=== PATIENT | female | born 1945 | race Caucasian/White ===

== ENCOUNTER 2017-09-17 07:24 | Inpatient (IN) | payer OTHER ==
[~2017-09-17] VITALS: Ht 162.6 cm; Wt 69.3 kg
[~2017-09-17 07:24] MED LIST: AZITHROMYCIN500 M1 PO; CALCIUM ANTACI500 MG PO; CYANOCOBALAM1000 MCG PO; ENABLEX15 MG PO; GLIPIZIDE5 MG PO; GLUCOTROL XL5 MG PO; LISINOPRIL10 MG PO; MEDROL DOSEPAK4 MG PO; METFORMIN HCL500 MG PO; OMEPRAZOLE20 MG PO; POTASSIUM CHLO10 ME4 PO; PRILOSEC20 MG PO; PULMICORT FLEX90 MCG IH; SIMVASTATIN20 MG PO; SIMVASTATIN40 MG PO; SPIRIVA RESPIMAT4 G1 IH; SULFASALAZINE500 MG PO; TOVIAZ8 MG PO; VENTOLIN HFA18 GM IH; VITAMIN D32000 UNI1 PO; VITAMIN E400 UNIT PO
[2017-09-17 08:04] LABS: BICARBONATE 27.9 mEq/L (22-26); CARBOXY HGB 2.1 % (0-5); COMMENTS - BLOOD GASES NAC+; DEVICE NC; METHEMOGLOBIN 1.1 % (0-1.5); O2 FLOW 6 L/MIN; PCO2 43 mm Hg (35-45); PO2 54 mm Hg (80-100); SITE LR; TOTAL RESP RATE 17 resp/min; pH 7.42 (7.35-7.45)
[2017-09-17 09:10] LABS: BASOPHIL COUNT 0.1 K/uL (0-0.1); EOSINOPHIL (%) 3.2 % (0-5); EOSINOPHIL COUNT 0.5 K/uL (0-0.3); HEMATOCRIT 35.6 % (36.0-46.0); IMMATURE GRANULOCYTE (%) 0.6 % (0.0-0.7); IMMATURE GRANULOCYTE COUNT 0.1 K/uL; INSTRUMENT ABS NEUTROPHIL CT 13.5 K/uL; LYMPHOCYTE COUNT 1.1 K/uL (1.0-2.8); MCH 27.3 PG (29.0-34.0); MCV 85.2 FL (83-99); MEAN PLAT.VOLUME 12.5 uM^3 (9.5-12.4); MONOCYTE (%) 5.9 % (3-12); NEUTROPHIL (%) 82.7 % (45-76); NEUTROPHIL COUNT 13.5 K/uL (1.8-6.4); PLATELET COUNT 227 K/uL (156-360); RBC DIS.WIDTH-CV 17.3 % (11.8-14.6); RBC DIS.WIDTH-SD 53.4 % (39-53); RED BLOOD COUNT 4.18 M/uL (3.80-5.20); WHITE BLOOD COUNT 16.4 K/uL (4.1-10.2)
[2017-09-17 09:15] LABS: INTER. NORMALIZED RATIO 1.1; PROTHROMBIN TIME 12.1 SEC (10.2-12.9)
[2017-09-17 09:17] LABS: PTT 22.7 SEC (25-37)
[2017-09-17 10:14] LABS: CHLORIDE 102 mEq/L (99-109); SODIUM 140 mEq/L (136-147)
[2017-09-17 10:17] LABS: GLUCOSE 161 mg/dL (70-99)
[2017-09-17 10:18] LABS: ANION GAP 11 MEQ/L (2-14); TOTAL BILIRUBIN 0.7 mg/dL (0.0-1.0)
[2017-09-17 10:20] LABS: ALKALINE PHOSPHATASE 123 IU/L (3-129); GFR ESTIMATE (CALCULATED) 58 mL/min/
[2017-09-17 10:21] LABS: UREA NITROGEN (BUN) 14 mg/dL (9-23)
[2017-09-17 10:24] LABS: TROP-I INTERPRETATION NEGATIVE; TROPONIN-I 0.08 ng/mL (0.0-0.30)
[2017-09-17 10:39] LABS: POTASSIUM 2.8 mEq/L (3.7-5.4)
[2017-09-17] MEDS ORDERED: ALBUTEROL2.5 MG/3 M IH (11:35)
[2017-09-17 13:29] LABS: ADD MIUA? YES; BILIRUBIN NEGATIVE; BLOOD MODERATE; COLOR YELLOW ((YELLOW)); GLUCOSE (STRIP) 50; KETONES NEGATIVE; LEUKOCYTES SMALL; NITRITE NEGATIVE; PROTEIN (STRIP) 30; SPECIFIC GRAVITY 1.008 (1.000-1.030); UROBILINOGEN 0.2 MG/DL (0.2-1.0)
[2017-09-17 13:36] LABS: BACTERIA 1+ /HPF; CALCIUM OXALATE CRYSTALS 1+ /HPF; EPITHELIAL CELLS RARE /HPF; HYALINE CASTS 0-5 /LPF; MUCUS TRACE /LPF; RED BLOOD CELLS 20-30 /HPF (0-5); UCUL ADDED? YES
[2017-09-17 14:52] VITALS: BP 180/82
[2017-09-17 16:12] LABS: TROP-I INTERPRETATION NEGATIVE; TROPONIN-I 0.09 ng/mL (0.0-0.30)
[2017-09-17 16:54] LABS: POINT-OF-CARE METER ID UU14314088
[2017-09-17 20:10] VITALS: BP 142/66
[2017-09-17 20:23] LABS: ANION GAP 11 MEQ/L (2-14); CHLORIDE 103 MEQ/L (99-109); GFR ESTIMATE (CALCULATED) > 59 mL/min/; GLUCOSE 265 mg/dL (70-99); SAMPLE HEMOLYSIS CHECK 0; SAMPLE ICTERIC CHECK 0; SAMPLE LIPEMIA CHECK 0; SODIUM 139 MEQ/L (136-147); UREA NITROGEN (BUN) 16 mg/dL (9-23)
[2017-09-17 20:24] LABS: POTASSIUM 3.7 MEQ/L (3.7-5.4)
[2017-09-17 21:14] LABS: POINT-OF-CARE METER ID UU14314088
[2017-09-17 22:13] LABS: TROP-I INTERPRETATION NEGATIVE; TROPONIN-I 0.05 ng/mL (0.0-0.30)
[2017-09-17 23:45] VITALS: BP 132/61
[2017-09-18 03:54] VITALS: BP 136/65
[2017-09-18 05:22] LABS: HEMATOCRIT 30.2 % (36.0-46.0); MCHC 31.8 G/DL (30.0-36.0); MCV 84.8 FL (83-99); MEAN PLAT.VOLUME 12.1 uM^3 (9.5-12.4); PLATELET COUNT 210 K/uL (156-360); RBC DIS.WIDTH-CV 17.2 % (11.8-14.6); RBC DIS.WIDTH-SD 53.1 % (39-53); RED BLOOD COUNT 3.56 M/uL (3.80-5.20); WHITE BLOOD COUNT 6.2 K/uL (4.1-10.2)
[2017-09-18 05:56] LABS: ANION GAP 13 MEQ/L (2-14); CHLORIDE 103 MEQ/L (99-109); GFR ESTIMATE (CALCULATED) 58 mL/min/; GLUCOSE 163 mg/dL (70-99); POTASSIUM 3.5 MEQ/L (3.7-5.4); SAMPLE HEMOLYSIS CHECK 0; SAMPLE ICTERIC CHECK 0; SAMPLE LIPEMIA CHECK 0; SODIUM 140 MEQ/L (136-147); UREA NITROGEN (BUN) 18 mg/dL (9-23)
[2017-09-18 07:49] LABS: POINT-OF-CARE METER ID UU13113781
[2017-09-18 07:50] VITALS: BP 126/59
[2017-09-18 08:52] LABS: INTERNAL CONTROL VALID? YES
[2017-09-18 11:45] LABS: POINT-OF-CARE METER ID UU13113781
[2017-09-18 12:15] VITALS: BP 163/72
[2017-09-18 16:46] LABS: POINT-OF-CARE METER ID UU13113781
[2017-09-18 17:01] VITALS: BP 147/66
[2017-09-18 19:05] VITALS: BP 160/71
[2017-09-18 21:34] LABS: POINT-OF-CARE METER ID UU13113781
[2017-09-18 23:37] VITALS: BP 150/70
[2017-09-19 03:20] VITALS: BP 154/72
[2017-09-19 08:00] VITALS: BP 190/92
[2017-09-19 08:15] LABS: POINT-OF-CARE METER ID UU14174216; POINT-OF-CARE USER ID NUTSLF44
[2017-09-19 11:34] VITALS: BP 184/87
[2017-09-19 11:43] LABS: POINT-OF-CARE METER ID UU14174216; POINT-OF-CARE USER ID NUTSLF44
[2017-09-19 15:25] VITALS: BP 194/90
[2017-09-19 17:18] LABS: POINT-OF-CARE METER ID UU14174216; POINT-OF-CARE USER ID NUTSLF44
[2017-09-19 19:50] VITALS: BP 166/72
[2017-09-19 21:30] LABS: POINT-OF-CARE METER ID UU13113698
[2017-09-19 23:15] VITALS: BP 149/66
[2017-09-20] VITALS (7 sets, daily range): BP systolic 158–210; BP diastolic 72–100
[2017-09-20 05:33] LABS: EOSINOPHIL (%) 0 % (0-5); HEMATOCRIT 31.8 % (36.0-46.0); IMMATURE GRANULOCYTE (%) 0.8 % (0.0-0.7); IMMATURE GRANULOCYTE COUNT 0.1 K/uL; INSTRUMENT ABS NEUTROPHIL CT 8.6 K/uL; LYMPHOCYTE COUNT 1.4 K/uL (1.0-2.8); MCH 27.7 PG (29.0-34.0); MCHC 32.7 G/DL (30.0-36.0); MCV 84.8 FL (83-99); MEAN PLAT.VOLUME 11.6 uM^3 (9.5-12.4); MONOCYTE (%) 4.6 % (3-12); MONOCYTE COUNT 0.5 K/uL (0-0.8); NEUTROPHIL COUNT 8.6 K/uL (1.8-6.4); PLATELET COUNT 247 K/uL (156-360); RBC DIS.WIDTH-CV 17.5 % (11.8-14.6); RBC DIS.WIDTH-SD 54.7 % (39-53); RED BLOOD COUNT 3.75 M/uL (3.80-5.20); WHITE BLOOD COUNT 10.6 K/uL (4.1-10.2)
[2017-09-20 06:38] LABS: ANION GAP 10 MEQ/L (2-14); CHLORIDE 104 MEQ/L (99-109); GFR ESTIMATE (CALCULATED) 47 mL/min/; GLUCOSE 118 mg/dL (70-99); POTASSIUM 3.7 MEQ/L (3.7-5.4); SAMPLE HEMOLYSIS CHECK 0; SAMPLE ICTERIC CHECK 0; SAMPLE LIPEMIA CHECK 0; SODIUM 141 MEQ/L (136-147); UREA NITROGEN (BUN) 32 mg/dL (9-23)
[2017-09-20 08:05] LABS: POINT-OF-CARE METER ID UU14174216
[2017-09-20 11:36] LABS: POINT-OF-CARE METER ID UU13113781
[2017-09-20 16:09] LABS: POINT-OF-CARE METER ID UU14174216
[2017-09-20 21:27] LABS: POINT-OF-CARE METER ID UU14174216
[2017-09-21 03:52] VITALS: BP 179/84
[2017-09-21 08:21] LABS: POINT-OF-CARE METER ID UU14174216; POINT-OF-CARE USER ID NUTSLF44
[2017-09-21 09:28] LABS: POINT-OF-CARE METER ID UU14174216
[2017-09-21 09:45] VITALS: BP 158/76
[2017-09-21 11:49] VITALS: BP 102/58
[2017-09-21 11:52] LABS: POINT-OF-CARE METER ID UU14174216
[2017-09-21 16:02] VITALS: BP 164/76
[2017-09-21 16:39] LABS: POINT-OF-CARE METER ID UU14174216
[2017-09-21 20:30] VITALS: BP 133/63
[2017-09-21 21:09] LABS: POINT-OF-CARE METER ID UU13113781
[2017-09-21 22:44] VITALS: BP 156/68
[2017-09-22 00:35] VITALS: BP 137/60
[2017-09-22 04:45] VITALS: BP 172/72
[2017-09-22 06:05] LABS: POINT-OF-CARE METER ID UU13113774
[2017-09-22 07:42] VITALS: BP 180/82
[2017-09-22 11:48] VITALS: BP 118/60
[2017-09-22 11:57] LABS: POINT-OF-CARE METER ID UU13113725
[2017-09-22] MEDS ORDERED: APRESOLINE25 MG PO (14:44)
[2017-09-22] MEDS ORDERED: LEVOFLOXACIN250 MG PO (14:44)
[2017-09-22] MEDS ORDERED: CARVEDILOL3.125 MG PO (14:44)
[2017-09-22] MEDS ORDERED: ASPIR-LOW81 MG PO (14:45)
[2017-09-22] MEDS ORDERED: ADVAIR HFA120 INHALA IH (14:47)
[2017-09-22] MEDS ORDERED: LEVEMIR100 UNIT/2 SC ×2 (14:48)
[2017-09-22] MEDS ORDERED: NOVOLOG PE100 UNITS/ SC (14:48)
[2017-09-22] MEDS ORDERED: FUROSEMIDE20 MG PO (14:53)
[2017-09-22] MEDS ORDERED: TRAMADOL HCL50 MG PO (14:56)
[2017-09-22] MEDS ORDERED: PREDNISONE5 MG PO (14:56)
[2017-09-22 16:04] VITALS: BP 135/69
[2017-09-22 16:30] LABS: POINT-OF-CARE METER ID UU13113725
== END 2017-09-22 17:31 | DRG 193 ==
LOC: EME 07:24 → 4EAST 11:13 → EDOF 11:13 → ENRESERV 11:18 → EDOF 11:42 → ENRESERV 12:29 → 4EAST 14:27 → ENRESERV 09-21 14:08 → 5EAST 09-21 22:10
PROVIDERS: Emergency Medicine; Hospitalist; Internal Medicine; Internal Medicine Pulmonary Disease
DX: J16.0 Chlamydial pneumonia (principal); J96.21 Acute and chronic respiratory failure with hypoxia; I46.8 Cardiac arrest due to other underlying condition; J44.0 Chronic obstructive pulmonary disease with (acute) lower respiratory infection; J44.1 Chronic obstructive pulmonary disease with (acute) exacerbation; E11.649 Type 2 diabetes mellitus with hypoglycemia without coma; E87.6 Hypokalemia; I11.0 Hypertensive heart disease with heart failure; I50.32 Chronic diastolic (congestive) heart failure; I27.20 Pulmonary hypertension, unspecified; J84.10 Pulmonary fibrosis, unspecified; Z99.81 Dependence on supplemental oxygen; B95.2 Enterococcus as the cause of diseases classified elsewhere; B96.89 Other specified bacterial agents as the cause of diseases classified elsewhere; R55 Syncope and collapse; R94.31 Abnormal electrocardiogram [ECG] [EKG]; N39.0 Urinary tract infection, site not specified; R79.1 Abnormal coagulation profile; E78.5 Hyperlipidemia, unspecified; K21.9 Gastro-esophageal reflux disease without esophagitis; Z79.84 Long term (current) use of oral hypoglycemic drugs; Z79.82 Long term (current) use of aspirin; Z87.891 Personal history of nicotine dependence; Z85.3 Personal history of malignant neoplasm of breast; Z91.041 Radiographic dye allergy status
CPT/HCPCS: 36600; 70450; 71010; 71250; 78582; 80047; 80048; 80048 91; 80053; 81003; 82803; 82948; 83605; 83880; 84484; 85025; 85027; 85379; 85610; 85730; 87070; 87077; 87086; 87186; 87205; 87449; 93005; 93970; 94640; 94640 76; 94799; 97530 GO; 97530 GP; 99202; 99281; 99285; A9540; A9567; J0696; J1650; J1815; J2405; J2930; J3480; J7512; J7644

== ENCOUNTER 2018-04-10 11:17 | Inpatient (IN) | payer OTHER ==
[~2018-04-10] VITALS: Ht 165.1 cm; Wt 64.1 kg
[~2018-04-10 11:17] MED LIST changes: +ADVAIR HFA120 INHALA IH; +ALBUTEROL2.5 MG/3 M IH; +APRESOLINE25 MG PO; +ASPIR-LOW81 MG PO; +CARVEDILOL3.125 MG PO; +FUROSEMIDE20 MG PO; +LEVEMIR100 UNIT/2 SC; +LEVOFLOXACIN250 MG PO; +NOVOLOG PE100 UNITS/ SC; +PREDNISONE5 MG PO; +TRAMADOL HCL50 MG PO
[2018-04-10 12:05] LABS: HEMATOCRIT 33.3 % (36.0-46.0); MCH 29.1 PG (29.0-34.0); MCV 88.1 FL (83-99); PLATELET COUNT 304 K/uL (156-360); RBC DIS.WIDTH-CV 14.2 % (11.8-14.6); RBC DIS.WIDTH-SD 45.9 % (39-53); RED BLOOD COUNT 3.78 M/uL (3.80-5.20); WHITE BLOOD COUNT 12.9 K/uL (4.1-10.2)
[2018-04-10 13:14] LABS: CHLORIDE 107 MEQ/L (99-109); CREATININE 1.1 MG/DL (0.6-1.3); GFR ESTIMATE (CALCULATED) 52 mL/min/; GLUCOSE 150 mg/dL (70-99); POTASSIUM 3.8 MEQ/L (3.7-5.4); SODIUM 141 MEQ/L (136-147); UREA NITROGEN (BUN) 20 mg/dL (9-23)
[2018-04-10] MEDS ORDERED: KLOR-CON20 MEQ PO (14:38)
[2018-04-10] MEDS ORDERED: DUONEB 2.5-0.5 M3 ML AEROSOL (14:42)
[2018-04-10 16:58] VITALS: BP 155/73
[2018-04-10 18:41] LABS: TROP-I INTERPRETATION NEGATIVE; TROPONIN-I < 0.01 ng/mL (0.0-0.30)
[2018-04-10 19:18] VITALS: BP 131/58
[2018-04-10 23:36] VITALS: BP 153/73
[2018-04-11 01:06] LABS: TROP-I INTERPRETATION NEGATIVE; TROPONIN-I < 0.01 ng/mL (0.0-0.30)
[2018-04-11 03:11] VITALS: BP 136/63
[2018-04-11 06:21] LABS: HEMATOCRIT 28.4 % (36.0-46.0); HEMOGLOBIN 9.1 G/DL (11.9-15.5); MCH 27.7 PG (29.0-34.0); MCV 86.6 FL (83-99); PLATELET COUNT 265 K/uL (156-360); RBC DIS.WIDTH-SD 44.4 % (39-53); RED BLOOD COUNT 3.28 M/uL (3.80-5.20); WHITE BLOOD COUNT 7.4 K/uL (4.1-10.2)
[2018-04-11 06:51] LABS: CHLORIDE 106 MEQ/L (99-109); CREATININE 1.2 MG/DL (0.6-1.3); GFR ESTIMATE (CALCULATED) 47 mL/min/; POTASSIUM 3.5 MEQ/L (3.7-5.4); SODIUM 141 MEQ/L (136-147); UREA NITROGEN (BUN) 25 mg/dL (9-23)
[2018-04-11 06:53] LABS: GLUCOSE 245 mg/dL (70-99)
[2018-04-11 06:56] LABS: TROP-I INTERPRETATION NEGATIVE; TROPONIN-I < 0.01 ng/mL (0.0-0.30)
[2018-04-11 08:01] VITALS: BP 137/63
[2018-04-11 12:00] VITALS: BP 135/63
[2018-04-11 12:39] LABS: HEMATOCRIT 30.9 % (36.0-46.0); MCV 87.3 FL (83-99)
[2018-04-11 15:51] VITALS: BP 147/65
[2018-04-11 19:41] VITALS: BP 128/61
[2018-04-11 23:55] VITALS: BP 144/65
[2018-04-12 04:00] VITALS: BP 141/64
[2018-04-12 05:54] LABS: HEMATOCRIT 27.7 % (36.0-46.0); MCH 28.2 PG (29.0-34.0); MCHC 32.5 G/DL (30.0-36.0); MCV 86.8 FL (83-99); PLATELET COUNT 306 K/uL (156-360); RBC DIS.WIDTH-CV 14.2 % (11.8-14.6); RBC DIS.WIDTH-SD 45.5 % (39-53); RED BLOOD COUNT 3.19 M/uL (3.80-5.20); WHITE BLOOD COUNT 13.7 K/uL (4.1-10.2)
[2018-04-12 06:20] LABS: CHLORIDE 109 MEQ/L (99-109); CREATININE 1.2 MG/DL (0.6-1.3); GFR ESTIMATE (CALCULATED) 47 mL/min/; GLUCOSE 208 mg/dL (70-99); IRON 30 MCG/DL (35-150); SODIUM 143 MEQ/L (136-147); TRANSFERRIN (TIBC) 214.3 mg/dL (215-380); TRANSFERRIN SATUR. 14 % (20-55); UREA NITROGEN (BUN) 33 mg/dL (9-23)
[2018-04-12 07:06] VITALS: BP 177/77
[2018-04-12 08:01] LABS: FERRITIN 55 NG/ML (10-291)
[2018-04-12 08:16] LABS: FOLIC ACID (FOLATE) > 22.0 NG/ML (5.0-22.0)
[2018-04-12 11:03] VITALS: BP 155/63
[2018-04-12 13:05] LABS: HEMATOCRIT 32.4 % (36.0-46.0); HEMOGLOBIN 10.1 G/DL (11.9-15.5)
[2018-04-12 15:22] VITALS: BP 153/67
[2018-04-12 19:21] VITALS: BP 142/62
[2018-04-12 23:25] VITALS: BP 133/63
[2018-04-13 03:53] VITALS: BP 136/61
[2018-04-13 07:45] VITALS: BP 144/68
[2018-04-13 07:50] LABS: HEMATOCRIT 28.5 % (36.0-46.0); HEMOGLOBIN 9.1 G/DL (11.9-15.5); MCH 28.3 PG (29.0-34.0); MCHC 31.9 G/DL (30.0-36.0); MCV 88.5 FL (83-99); PLATELET COUNT 300 K/uL (156-360); RBC DIS.WIDTH-CV 14.5 % (11.8-14.6); RBC DIS.WIDTH-SD 46.4 % (39-53); RED BLOOD COUNT 3.22 M/uL (3.80-5.20); WHITE BLOOD COUNT 13.2 K/uL (4.1-10.2)
[2018-04-13 08:30] LABS: CHLORIDE 109 MEQ/L (99-109); CREATININE 1.5 MG/DL (0.6-1.3); GFR ESTIMATE (CALCULATED) 36 mL/min/; GLUCOSE 243 mg/dL (70-99); POTASSIUM 4.2 MEQ/L (3.7-5.4); SODIUM 142 MEQ/L (136-147); UREA NITROGEN (BUN) 38 mg/dL (9-23)
[2018-04-13 12:36] VITALS: BP 135/68
[2018-04-13 15:24] VITALS: BP 145/77
[2018-04-13 19:35] VITALS: BP 133/70
[2018-04-14 00:08] VITALS: BP 162/72
[2018-04-14 03:40] VITALS: BP 145/70
[2018-04-14 07:40] VITALS: BP 155/73
[2018-04-14 11:12] LABS: BASOPHIL (%) 0.3 % (0-1); EOSINOPHIL (%) 0 % (0-5); HEMATOCRIT 30.9 % (36.0-46.0); HEMOGLOBIN 9.9 G/DL (11.9-15.5); LYMPHOCYTE (%) 9.5 % (15-42); LYMPHOCYTE COUNT 1.4 K/uL (1.0-2.8); MCH 28.1 PG (29.0-34.0); MCV 87.8 FL (83-99); MONOCYTE (%) 4.6 % (3-12); MONOCYTE COUNT 0.7 K/uL (0-0.8); NEUTROPHIL (%) 82.6 % (45-76); PLATELET COUNT 323 K/uL (156-360); RBC DIS.WIDTH-CV 14.6 % (11.8-14.6); RBC DIS.WIDTH-SD 46.8 % (39-53); RED BLOOD COUNT 3.52 M/uL (3.80-5.20); WHITE BLOOD COUNT 14.5 K/uL (4.1-10.2)
[2018-04-14 12:04] LABS: CHLORIDE 107 MEQ/L (99-109); CREATININE 1.1 MG/DL (0.6-1.3); GFR ESTIMATE (CALCULATED) 52 mL/min/; GLUCOSE 249 mg/dL (70-99); POTASSIUM 4.1 MEQ/L (3.7-5.4); SODIUM 140 MEQ/L (136-147); UREA NITROGEN (BUN) 31 mg/dL (9-23)
[2018-04-14 15:16] VITALS: BP 157/74
[2018-04-14 19:44] VITALS: BP 138/66
[2018-04-14 23:33] VITALS: BP 139/67
[2018-04-15 03:31] VITALS: BP 137/68
[2018-04-15 05:35] LABS: BASOPHIL (%) 0.1 % (0-1); EOSINOPHIL (%) 0.8 % (0-5); EOSINOPHIL COUNT 0.1 K/uL (0-0.3); HEMATOCRIT 28.2 % (36.0-46.0); HEMOGLOBIN 9.1 G/DL (11.9-15.5); LYMPHOCYTE (%) 27.2 % (15-42); LYMPHOCYTE COUNT 3.7 K/uL (1.0-2.8); MCH 28.5 PG (29.0-34.0); MCHC 32.3 G/DL (30.0-36.0); MCV 88.4 FL (83-99); MONOCYTE (%) 9.5 % (3-12); MONOCYTE COUNT 1.3 K/uL (0-0.8); NEUTROPHIL (%) 60.4 % (45-76); NEUTROPHIL COUNT 8.3 K/uL (1.8-6.4); PLATELET COUNT 282 K/uL (156-360); RBC DIS.WIDTH-CV 14.6 % (11.8-14.6); RBC DIS.WIDTH-SD 46.4 % (39-53); RED BLOOD COUNT 3.19 M/uL (3.80-5.20); WHITE BLOOD COUNT 13.7 K/uL (4.1-10.2)
[2018-04-15 06:33] LABS: CHLORIDE 110 MEQ/L (99-109); CREATININE 1.2 MG/DL (0.6-1.3); GFR ESTIMATE (CALCULATED) 47 mL/min/; POTASSIUM 3.4 MEQ/L (3.7-5.4); SODIUM 143 MEQ/L (136-147); UREA NITROGEN (BUN) 27 mg/dL (9-23)
[2018-04-15 06:39] LABS: GLUCOSE 77 mg/dL (70-99)
[2018-04-15 07:37] VITALS: BP 157/70
[2018-04-15 11:38] VITALS: BP 162/70
[2018-04-15 15:37] VITALS: BP 141/67
[2018-04-15 19:40] VITALS: BP 149/67
[2018-04-15 23:51] VITALS: BP 146/68
[2018-04-16 03:51] VITALS: BP 162/76
[2018-04-16 05:30] LABS: BASOPHIL (%) 0.2 % (0-1); EOSINOPHIL (%) 0.4 % (0-5); EOSINOPHIL COUNT 0.1 K/uL (0-0.3); HEMATOCRIT 27.6 % (36.0-46.0); HEMOGLOBIN 9.1 G/DL (11.9-15.5); LYMPHOCYTE (%) 13.4 % (15-42); LYMPHOCYTE COUNT 1.6 K/uL (1.0-2.8); MCH 28.6 PG (29.0-34.0); MCV 86.8 FL (83-99); MONOCYTE (%) 3.1 % (3-12); MONOCYTE COUNT 0.4 K/uL (0-0.8); NEUTROPHIL (%) 79.9 % (45-76); NEUTROPHIL COUNT 9.7 K/uL (1.8-6.4); NRBC (%) 0.2 /100 WBC (0-0); PLATELET COUNT 291 K/uL (156-360); RBC DIS.WIDTH-CV 14.6 % (11.8-14.6); RBC DIS.WIDTH-SD 45.5 % (39-53); RED BLOOD COUNT 3.18 M/uL (3.80-5.20); WHITE BLOOD COUNT 12.1 K/uL (4.1-10.2)
[2018-04-16 06:15] LABS: CHLORIDE 109 MEQ/L (99-109); GFR ESTIMATE (CALCULATED) 57 mL/min/; SODIUM 143 MEQ/L (136-147); UREA NITROGEN (BUN) 25 mg/dL (9-23)
[2018-04-16 06:19] LABS: GLUCOSE 179 mg/dL (70-99); POTASSIUM 4.4 MEQ/L (3.7-5.4)
[2018-04-16 07:35] VITALS: BP 143/63
[2018-04-16 11:43] VITALS: BP 141/70
[2018-04-16 15:44] VITALS: BP 155/71
[2018-04-16 20:19] VITALS: BP 157/74
[2018-04-17] VITALS (7 sets, daily range): BP systolic 120–154; BP diastolic 56–69
[2018-04-17 06:43] LABS: BASOPHIL (%) 0.2 % (0-1); EOSINOPHIL (%) 3.3 % (0-5); EOSINOPHIL COUNT 0.6 K/uL (0-0.3); HEMATOCRIT 28.9 % (36.0-46.0); HEMOGLOBIN 9.2 G/DL (11.9-15.5); IMMATURE GRANULOCYTE (%) 2.5 % (0.0-0.7); LYMPHOCYTE (%) 31.5 % (15-42); LYMPHOCYTE COUNT 5.4 K/uL (1.0-2.8); MCHC 31.8 G/DL (30.0-36.0); MCV 88.1 FL (83-99); MONOCYTE (%) 7.5 % (3-12); MONOCYTE COUNT 1.3 K/uL (0-0.8); NEUTROPHIL COUNT 9.3 K/uL (1.8-6.4); PLATELET COUNT 314 K/uL (156-360); RBC DIS.WIDTH-CV 14.9 % (11.8-14.6); RBC DIS.WIDTH-SD 47.2 % (39-53); RED BLOOD COUNT 3.28 M/uL (3.80-5.20)
[2018-04-17 07:11] LABS: CHLORIDE 109 MEQ/L (99-109); CREATININE 1.2 MG/DL (0.6-1.3); GFR ESTIMATE (CALCULATED) 47 mL/min/; POTASSIUM 3.8 MEQ/L (3.7-5.4); SODIUM 145 MEQ/L (136-147); UREA NITROGEN (BUN) 25 mg/dL (9-23)
[2018-04-17 07:12] LABS: GLUCOSE 45 mg/dL (70-99)
[2018-04-18 04:19] VITALS: BP 117/59
[2018-04-18 06:01] LABS: HEMATOCRIT 29.4 % (36.0-46.0); HEMOGLOBIN 9.6 G/DL (11.9-15.5); MCH 28.3 PG (29.0-34.0); MCHC 32.7 G/DL (30.0-36.0); MCV 86.7 FL (83-99); PLATELET COUNT 323 K/uL (156-360); RBC DIS.WIDTH-CV 15.1 % (11.8-14.6); RBC DIS.WIDTH-SD 46.1 % (39-53); RED BLOOD COUNT 3.39 M/uL (3.80-5.20); WHITE BLOOD COUNT 14.8 K/uL (4.1-10.2)
[2018-04-18 06:32] LABS: CHLORIDE 101 MEQ/L (99-109); CREATININE 1.3 MG/DL (0.6-1.3); GFR ESTIMATE (CALCULATED) 42 mL/min/; GLUCOSE 68 mg/dL (70-99); POTASSIUM 4.2 MEQ/L (3.7-5.4); SODIUM 142 MEQ/L (136-147); UREA NITROGEN (BUN) 27 mg/dL (9-23)
[2018-04-18 07:19] VITALS: BP 128/65
[2018-04-18 10:53] LABS: BASE EXCESS 4.9 mEq/L (-3 to +3); BICARBONATE 29.2 mEq/L (22-26); CARBOXY HGB 1.7 % (0-5); DEVICE NC; METHEMOGLOBIN 0.6 % (0-1.5); O2 FLOW 4 L/MIN; PCO2 41 mm Hg (35-45); PO2 58 mm Hg (80-100); SITE LR; pH 7.46 (7.35-7.45)
[2018-04-18 12:09] VITALS: BP 132/66
[2018-04-18 15:57] VITALS: BP 121/67
[2018-04-18 19:18] VITALS: BP 134/69
[2018-04-18 23:39] VITALS: BP 126/65
[2018-04-19 03:35] VITALS: BP 131/63
[2018-04-19 08:13] VITALS: BP 120/67
[2018-04-19 11:25] VITALS: BP 88/49
[2018-04-19 13:33] LABS: HEMATOCRIT 35.2 % (36.0-46.0); HEMOGLOBIN 11.1 G/DL (11.9-15.5); MCH 28.7 PG (29.0-34.0); MCHC 31.5 G/DL (30.0-36.0); PLATELET COUNT 285 K/uL (156-360); RBC DIS.WIDTH-CV 15.4 % (11.8-14.6); RBC DIS.WIDTH-SD 48.4 % (39-53); RED BLOOD COUNT 3.87 M/uL (3.80-5.20); WHITE BLOOD COUNT 18.7 K/uL (4.1-10.2)
[2018-04-19 14:00] LABS: CHLORIDE 101 MEQ/L (99-109); CREATININE 1.3 MG/DL (0.6-1.3); GFR ESTIMATE (CALCULATED) 42 mL/min/; POTASSIUM 4.4 MEQ/L (3.7-5.4); SODIUM 138 MEQ/L (136-147); UREA NITROGEN (BUN) 32 mg/dL (9-23)
[2018-04-19 14:08] LABS: GLUCOSE 253 mg/dL (70-99)
[2018-04-19 15:13] VITALS: BP 104/55
[2018-04-19 17:48] VITALS: BP 130/63
[2018-04-19 20:00] VITALS: BP 104/53
[2018-04-20] VITALS (7 sets, daily range): BP systolic 123–172; BP diastolic 59–84
[2018-04-20 06:15] LABS: CHLORIDE 106 MEQ/L (99-109); CREATININE 1.3 MG/DL (0.6-1.3); GFR ESTIMATE (CALCULATED) 42 mL/min/; GLUCOSE 179 mg/dL (70-99); POTASSIUM 4.6 MEQ/L (3.7-5.4); SODIUM 140 MEQ/L (136-147); UREA NITROGEN (BUN) 33 mg/dL (9-23)
[2018-04-20 06:39] LABS: MCH 27.8 PG (29.0-34.0); MCV 89.5 FL (83-99); PLATELET COUNT 267 K/uL (156-360); RBC DIS.WIDTH-CV 15.2 % (11.8-14.6); RBC DIS.WIDTH-SD 48.1 % (39-53); RED BLOOD COUNT 3.24 M/uL (3.80-5.20); WHITE BLOOD COUNT 11.2 K/uL (4.1-10.2)
[2018-04-21 03:32] VITALS: BP 143/71
[2018-04-21 07:46] VITALS: BP 172/72
[2018-04-21 12:05] VITALS: BP 123/62
[2018-04-21 16:17] VITALS: BP 146/64
[2018-04-21 20:00] VITALS: BP 102/56
[2018-04-22] VITALS: BP 107/59
[2018-04-22 04:00] VITALS: BP 123/64
[2018-04-22 07:15] VITALS: BP 168/74
[2018-04-22 14:59] VITALS: BP 116/55
[2018-04-23] VITALS: BP 160/73
[2018-04-23 07:10] VITALS: BP 168/72
[2018-04-23] MEDS ORDERED: FERROUS SULFAT325 MG PO (09:28)
[2018-04-23] MEDS ORDERED: PREDNISONE10 MG PO (09:28)
[2018-04-23] MEDS ORDERED: SPIRIVA RESPIMAT4 GM IH (09:28)
[2018-04-23] MEDS ORDERED: DULERA 100 MCG/13 GM IH (09:28)
[2018-04-23] MEDS ORDERED: THEOPHYLLINE400 MG PO (09:28)
[2018-04-23 13:23] VITALS: BP 147/71
== END 2018-04-23 13:37 | DRG 193 ==
LOC: EME 11:17 → 5SOUTH 13:33 → EDOF 13:33 → ENRESERV 13:34 → 5SOUTH 16:23
PROVIDERS: Emergency Medicine; Hospitalist; Internal Medicine; Physician Assistant; Physician Assistant Medical
DX: J18.9 Pneumonia, unspecified organism (principal); J96.21 Acute and chronic respiratory failure with hypoxia; J44.0 Chronic obstructive pulmonary disease with (acute) lower respiratory infection; J44.1 Chronic obstructive pulmonary disease with (acute) exacerbation; I27.29 Other secondary pulmonary hypertension; J84.10 Pulmonary fibrosis, unspecified; I11.0 Hypertensive heart disease with heart failure; E11.649 Type 2 diabetes mellitus with hypoglycemia without coma; I50.810 Right heart failure, unspecified; D50.9 Iron deficiency anemia, unspecified; E78.5 Hyperlipidemia, unspecified; K21.9 Gastro-esophageal reflux disease without esophagitis; I25.10 Atherosclerotic heart disease of native coronary artery without angina pectoris; K51.90 Ulcerative colitis, unspecified, without complications; T38.0X5A Adverse effect of glucocorticoids and synthetic analogues, initial encounter; Z85.3 Personal history of malignant neoplasm of breast; Z90.13 Acquired absence of bilateral breasts and nipples; Z86.74 Personal history of sudden cardiac arrest; Z99.81 Dependence on supplemental oxygen; Z82.49 Family history of ischemic heart disease and other diseases of the circulatory system; Z83.3 Family history of diabetes mellitus; Z87.891 Personal history of nicotine dependence; Z91.041 Radiographic dye allergy status
CPT/HCPCS: 36600; 71045; 71046; 78582; 80048; 80198; 82607; 82728; 82746; 82948; 83540; 83605; 84466; 84484; 85014; 85018; 85025; 85027; 87040; 93005; 93306; 94640; 94664; 94669; 94799; 97530 GO; 97530 GP; 99281; 99285; A9539; A9540; C1753; J0295; J0456; J0696; J1650; J1815; J1940; J2543; J2920; J2930; J7030; J7050; J7512

== ENCOUNTER 2018-05-06 02:36 | Observation (INO) | payer OTHER ==
[~2018-05-06] VITALS: Ht 152.4 cm; Wt 55.1 kg
[~2018-05-06 02:36] MED LIST changes: +DULERA 100 MCG/13 GM IH; +DUONEB 2.5-0.5 M3 ML AEROSOL; +FERROUS SULFAT325 MG PO; +KLOR-CON20 MEQ PO; +PREDNISONE10 MG PO; +SPIRIVA RESPIMAT4 GM IH; +THEOPHYLLINE400 MG PO
[2018-05-06 03:24] LABS: CHLORIDE 102 MEQ/L (99-109); CREATININE 1.1 MG/DL (0.6-1.3); GFR ESTIMATE (CALCULATED) 51 mL/min/; GLUCOSE 147 mg/dL (70-99); POTASSIUM 4.1 MEQ/L (3.7-5.4); SODIUM 138 MEQ/L (136-147); UREA NITROGEN (BUN) 28 mg/dL (9-23)
[2018-05-06 03:24] LABS: TROP-I INTERPRETATION NEGATIVE; TROPONIN-I < 0.01 ng/mL (0.0-0.30)
[2018-05-06 03:32] LABS: HEMATOCRIT 33.7 % (36.0-46.0); MCH 29.1 PG (29.0-34.0); MCHC 32.9 G/DL (30.0-36.0); MCV 88.5 FL (83-99); PLATELET COUNT 258 K/uL (156-360); RBC DIS.WIDTH-CV 16.9 % (11.8-14.6); RBC DIS.WIDTH-SD 54.7 % (39-53); RED BLOOD COUNT 3.81 M/uL (3.80-5.20); WHITE BLOOD COUNT 11.5 K/uL (4.1-10.2)
[2018-05-06 03:33] LABS: HEMOGLOBIN 11.1 G/DL (11.9-15.5)
[2018-05-06 05:50] VITALS: BP 121/53
[2018-05-06 08:26] VITALS: BP 120/74
[2018-05-06 10:27] LABS: TROP-I INTERPRETATION NEGATIVE; TROPONIN-I < 0.01 ng/mL (0.0-0.30)
[2018-05-06] MEDS ORDERED: PREDNISONE5 MG PO (11:11)
[2018-05-06] MEDS ORDERED: SYMBICORT60 INHALAT IH (11:11)
[2018-05-06 11:25] VITALS: BP 86/49
[2018-05-06] MEDS ORDERED: SPIRIVA RESPIMAT4 GM IH (15:27)
[2018-05-06] MEDS ORDERED: DULERA 100 MCG/13 GM IH (15:29)
[2018-05-06] MEDS ORDERED: THEOPHYLLINE400 MG PO (15:30)
[2018-05-06 15:34] LABS: TROP-I INTERPRETATION NEGATIVE; TROPONIN-I < 0.01 ng/mL (0.0-0.30)
[2018-05-06] MEDS ORDERED: ACETAMINOPHEN325 M1 PO (15:34)
[2018-05-06] MEDS ORDERED: PREDNISONE10 MG PO (15:35)
[2018-05-06 15:59] VITALS: BP 100/73
[2018-05-06 16:53] LABS: APPEARANCE CLEAR ((CLEAR)); BILIRUBIN NEGATIVE; BLOOD NEGATIVE; COLOR YELLOW ((YELLOW)); GLUCOSE (STRIP) NEGATIVE; KETONES NEGATIVE; LEUKOCYTES NEGATIVE; NITRITE NEGATIVE; PROTEIN (STRIP) NEGATIVE; SPECIFIC GRAVITY 1.012 (1.000-1.030); UCUL ADDED? NO; UROBILINOGEN 0.2 MG/DL (0.2-1.0)
[2018-05-06 20:42] VITALS: BP 140/63
[2018-05-06 23:58] VITALS: BP 115/57
[2018-05-07 04:07] VITALS: BP 115/57
[2018-05-07 07:20] VITALS: BP 146/69
[2018-05-07] MEDS ORDERED: LISINOPRIL2.5 MG PO (08:48)
[2018-05-07 12:00] VITALS: BP 131/63
[2018-05-07 15:47] VITALS: BP 127/76
== END 2018-05-07 16:15 ==
LOC: EME → EDBD 02:36 → EDOF 04:28 → 4SOUTH 05:29
PROVIDERS: Physician Assistant Medical
DX: R07.89 Other chest pain (principal); I27.29 Other secondary pulmonary hypertension; I11.0 Hypertensive heart disease with heart failure; I50.810 Right heart failure, unspecified; J44.9 Chronic obstructive pulmonary disease, unspecified; J96.10 Chronic respiratory failure, unspecified whether with hypoxia or hypercapnia; Z99.81 Dependence on supplemental oxygen; J84.10 Pulmonary fibrosis, unspecified; I95.89 Other hypotension; R35.0 Frequency of micturition; K44.9 Diaphragmatic hernia without obstruction or gangrene; K21.9 Gastro-esophageal reflux disease without esophagitis; Z87.11 Personal history of peptic ulcer disease; E78.5 Hyperlipidemia, unspecified; E11.9 Type 2 diabetes mellitus without complications; Z85.3 Personal history of malignant neoplasm of breast; Z87.891 Personal history of nicotine dependence; Z82.49 Family history of ischemic heart disease and other diseases of the circulatory system; F41.9 Anxiety disorder, unspecified; M19.90 Unspecified osteoarthritis, unspecified site; Z91.041 Radiographic dye allergy status
CPT/HCPCS: 71046; 80048; 81003; 84484; 85027; 93005; 94799; 99281; 99285; G0378; J1644; J7030; J7120; J7512

== ENCOUNTER 2018-05-28 19:10 | Emergency (ER) | payer OTHER ==
[~2018-05-28] VITALS: Ht 167.6 cm; Wt 65.1 kg
[~2018-05-28 19:10] MED LIST changes: +ACETAMINOPHEN325 M1 PO; +LISINOPRIL2.5 MG PO; +SYMBICORT60 INHALAT IH
[2018-05-28 19:33] VITALS: BP 82/58
[2018-05-28 19:42] LABS: AMYLASE 118 IU/L (1-118); CHLORIDE 108 mEq/L (99-109); POTASSIUM 5.8 mEq/L (3.7-5.4); SODIUM 142 mEq/L (136-147)
[2018-05-28 19:44] LABS: GLUCOSE 326 mg/dL (70-99)
[2018-05-28 19:47] LABS: SERUM ETHYL ALCOHOL < 10 mg/dL
[2018-05-28 19:48] LABS: CREATININE 1.4 mg/dL (0.6-1.3); GFR ESTIMATE (CALCULATED) 39 mL/min/
[2018-05-28 19:49] LABS: UREA NITROGEN (BUN) 20 mg/dL (9-23)
[2018-05-28 19:54] LABS: TROP-I INTERPRETATION NEGATIVE; TROPONIN-I 0.09 ng/mL (0.0-0.30)
[2018-05-28 20:16] LABS: LIPASE 36 U/L (1.0-51.0)
== END 2018-05-28 21:58 ==
LOC: EME → EDBD 19:10 → EME 21:58
PROVIDERS: Emergency Medicine Emergency Medical Services
PROC: 5A0935Z Assistance with Respiratory Ventilation, Less than 24 Consecutive Hours (ICD-10-PCS; principal; 2018-05-28)
PROC: 5A2204Z Restoration of Cardiac Rhythm, Single (ICD-10-PCS; principal; 2018-05-28)
DX: I46.9 Cardiac arrest, cause unspecified (principal); I45.10 Unspecified right bundle-branch block; R00.1 Bradycardia, unspecified; J44.9 Chronic obstructive pulmonary disease, unspecified; E11.9 Type 2 diabetes mellitus without complications; Z79.84 Long term (current) use of oral hypoglycemic drugs; E78.5 Hyperlipidemia, unspecified; K21.9 Gastro-esophageal reflux disease without esophagitis; Z85.3 Personal history of malignant neoplasm of breast; Z90.49 Acquired absence of other specified parts of digestive tract; Z87.891 Personal history of nicotine dependence
CPT/HCPCS: 71045; 80047; 80048; 81003; 82150; 83605; 83690; 84484; 85025; 85610; 85730; 86850; 86900; 86901; 87040; 93005; 94002; 99281; 99285; G0480; J0171; J0461; J7050